=== PATIENT | female | born 1995 | race Hispanic/Latino ===

== ENCOUNTER 2018-12-06 23:03 | Emergency (ER) | payer OTHER ==
[2018-12-06 23:08] VITALS: BP 132/93; TEMP 98.1
[2018-12-06] MEDS ORDERED: DiphenhydrAMINE 50 mg/ml Inj IVP STA (23:19)
[2018-12-06] MEDS ORDERED: DiphenhydrAMINE 50 mg/ml Inj ONE (23:19)
--- NOTE | 2018-12-06 23:21 | ED PDOC ---
HPI: Allergic Reaction Time Seen by Provider: 12/06/18 23:18 Chief Complaint (Nursing): Allergic Reaction Chief Complaint (Provider): Allergic Reaction History Per: Patient History/Exam Limitations: no limitations Onset/Duration Of Symptoms: Hrs (1.5) Possible Cause: Food Associated Symptoms: Swelling (of lips), Itching, Other (Nausea) Additional Complaint(s): 23 years old female with a history of nuts allergy presents to ER for evaluation of itchiness, nausea and lip swelling immediately after eating a salad w nuts presumably 1.5 hour ago. Patient reports taking Benadryl but vomited. PMD: [place] Past Medical History Reviewed: Historical Data, Nursing Documentation, Vital Signs Vital Signs: Last Vital Signs Temp 98.1 F 12/06/18 23:07 Pulse 149 H 12/06/18 23:07 Resp BP 132/93 H 12/06/18 23:07 Pulse Ox 100 12/06/18 23:07 - Medical History Other PMH: celiac - Surgical History Surgical History: No Surg Hx - Family History Family History: States: Unknown Family Hx - Social History Current smoker - smoking cessation education provided: No Alcohol: None Drugs: Denies - Allergies Allergies/Adverse Reactions: Allergies Allergy/AdvReac Type Severity Reaction Status Date / Time gluten Allergy ANAPHYLAXIS Verified 12/06/18 23:07 peanut Allergy ANAPHYLAXIS Verified 12/06/18 23:07 tree nut Allergy ANAPHYLAXIS Verified 12/06/18 23:07 Review of Systems ROS Statement: Except As Marked, All Systems Reviewed And Found Negative ENT: Positive for: Mouth Swelling (Lips) Gastrointestinal: Positive for: Nausea Skin: Positive for: Other (Itchy) Physical Exam - Reviewed Nursing Documentation Reviewed: Yes Vital Signs Reviewed: Yes - Physical Exam Appears: Positive for: Well, No Acute Distress Head Exam: Positive for: ATRAUMATIC, NORMOCEPHALIC Skin: Positive for: Normal Color, Rash (Diffuse urticaria) Eye Exam: Positive for: Normal appearance, EOMI, PERRL ENT: Positive for: Other (mild lip swelling) Neck: Positive for: Normal, Painless ROM, Supple Cardiovascular/Chest: Positive for: Regular Rate, Rhythm. Negative for: Murmur Respiratory: Positive for: Normal Breath Sounds. Negative for: Respiratory Distress Gastrointestinal/Abdominal: Positive for: Normal Exam, Soft. Negative for: Tenderness Back: Positive for: Normal Inspection. Negative for: L CVA Tenderness, R CVA T enderness Extremity: Positive for: Normal ROM. Negative for: Pedal Edema, Swelling Neurologic/Psych: Positive for: Alert (Speaking full sentences), Oriented (x3) - Laboratory Results Result Diagrams: 12/06/18 23:25 - ECG O2 Sat by Pulse Oximetry: 100 (RA) Pulse Ox Interpretation: Normal Disposition - Clinical Impression Clinical Impression: Allergic reaction - Patient ED Disposition Is Patient to be Admitted: Transfer of Care - Disposition Disposition: Transfer of Care Disposition Time: 23:37 Condition: STABLE Forms: [facility] ([place]ian) Patient Signed Over To: Sonido Canela Medical Decision Making Medical Decision Making: Time: 2317 Initial Plan: allergic reaction --CMP --CBC --Benadryl 50 mg IVP --Pepcid 20 mg IVP --SOLU-Medrol 125 mg IVP Scribe Attestation: Documented by Makenzie Dawson, acting as a scribe for Jennie Griffin MD. Provider Scribe Attestation: All medical record entries made by the Scribe were at my direction and personally dictated by me. I have reviewed the chart and agree that the record accurately reflects my personal performance of the history, physical exam, medical decision making, and the department course for this patient. I have also personally directed, reviewed, and agree with the discharge instructions and disposition.
[2018-12-06 23:28] LABS: BASO % 0.1 % (0.0-2.0); EOS % 0.4 % (0.0-4.0); HEMOGLOBIN 14.8 g/dL (12.0-16.0); LYMPH % 45.8 % (20.0-40.0); MEAN CELL VOLUME 90.4 fl (81.0-99.0); MEAN CORPUSCULAR HGB CONC 33.1 g/dL (33.0-37.0); MEAN PLATELET VOLUME 10.6 fl (7.2-11.7); MONO # 0.6 K/uL (0.0-0.8); MONO % 6.6 % (0.0-10.0); NEUT # 4.1 K/uL (1.8-7.0); NEUT % 47.1 % (50.0-75.0); NRBC % 0.1 % (0.0-0.0); RBC 4.95 Mil/uL (3.80-5.20); WHITE BLOOD COUNT 8.8 K/uL (4.8-10.8)
[2018-12-06 23:38] LABS: ALB/GLOB RATIO 1.6 (1.0-2.1); ALBUMIN 4.9 g/dL (3.5-5.0); ALT/SGPT 27 U/L (9-52); AST/SGOT 22 U/L (14-36); BLOOD UREA NITROGEN 15 mg/dl (7-17); CALCIUM 9.7 mg/dL (8.4-10.2); GFR NON-AFRICAN AMERICAN > 60
--- NOTE | 2018-12-07 00:07 | ED PDOC ---
- Laboratory Results Result Diagrams: 12/06/18 23:25 12/06/18 23:25 Lab Results: Total Bilirubin 0.3 mg/dl (0.2-1.3) 12/06/18 23:25 AST 22 U/L (14-36) 12/06/18 23:25 ALT 27 U/L (9-52) 12/06/18 23:25 Alkaline Phosphatase 79 U/L (38-126) 12/06/18 23:25 Total Protein 7.8 G/DL (6.3-8.2) 12/06/18 23:25 Albumin 4.9 g/dL (3.5-5.0) 12/06/18 23:25 Globulin 3.0 gm/dL (2.2-3.9) 12/06/18 23:25 Albumin/Globulin Ratio 1.6 (1.0-2.1) 12/06/18 23:25 - ECG O2 Sat by Pulse Oximetry: 100 (RA) Pulse Ox Interpretation: Normal Medical Decision Making Medical Decision Makin Patient endorsed by Dr. Griffin, pending reevaluation. [id number] Patient reports marked improvement in symptoms. 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 Diagnosis: allergic reaction Scribe Attestation: Documented by Makenzie Dawson, acting as a scribe for Sonido Canela MD. Provider Scribe Attestation: All medical record entries made by the Scribe were at my direction and personally dictated by me. I have reviewed the chart and agree that the record accurately reflects my personal performance of the history, physical exam, medical decision making, and the department course for this patient. I have also personally directed, reviewed, and agree with the discharge instructions and disposition. Disposition - Clinical Impression Clinical Impression: Allergic reaction - POA Present On Arrival: None - Disposition Disposition: Routine/Home Disposition Time: 03:09 Condition: STABLE Prescriptions: Cetirizine HCl [Zyrtec] 10 mg PO QAM #10 capsule Famotidine [Pepcid] 20 mg PO Q12 #14 tab Methylprednisolone [Medrol Dosepak] 4 mg PO ASDIR #1 pkg Instructions: Food Allergy Forms: [facility] ([place]adorean)
[2018-12-07] MEDS ORDERED: Sodium Chloride 0.9% 1,000 ML IV STA (01:19)
[2018-12-07 01:46] VITALS: PULSE 89; RESP 16
[2018-12-07] MEDS ORDERED: Albuterol-Ipratrop 3 mg / 0.5 (3 ml) UD INH STA (02:40)
[2018-12-07 20:27] VITALS: O2SAT 100
== END 2018-12-07 03:14 | disposition home or self-care (01) ==
LOC: H.ER 23:03
DX: T78.40XA Allergy, unspecified, initial encounter (principal); R11.0 Nausea
CPT/HCPCS: 80053; 85025; 94640; 96374; 96375; 96376; 99283; J1200; J2930; J7030